=== PATIENT | female | born 1975 | race Caucasian/White ===

== ENCOUNTER 2017-01-22 17:45 | Emergency (ER) | payer OTHER ==
[~2017-01-22] VITALS: Ht 165.1 cm; Wt 56.8 kg
[2017-01-22 17:50] VITALS: BP 99/61; PULSE 127; RESP 18; O2SAT 99
[2017-01-22 18:23] LABS: BASOPHILS % (AUTO) 0.2 % (0-3); EOSINOPHILS % (AUTO) 0.1 % (0-5); MONOCYTES % (AUTO) 8.6 % (4-12); Mean Corpuscular Hemoglobin 26.7 pg (27.0-35.0); Mean Corpuscular Volume 95.3 fL (81-100); NEUTROPHILS % (AUTO) 82.6 % (40-74); Platelet Count 130 bil/L (150-400)
--- NOTE | 2017-01-22 18:33 | ED.REPORT ---
HPI-General Illness Date of Service Jan 22, 2017 ED Provider: Pancho Pham DO A 41 year old female with a history of alcohol abuse and pancreatitis is referred to the ED by Urgent Care due to jaundice. The pt's family noticed the jaundice yesterday. This has been accompanied by abdominal distention and black stools for two weeks. She denies fever, vomiting, diarrhea, or hematemesis. The pt has a history of drinking daily but states that "it has been a while" since she did this. She states that she now drinks less frequently, but pt's states that she still drinks every day and undergoes withdrawal seizures. The pt was diagnosed with pancreatitis related to her alcohol use three years ago. She denies a history of hemolytic anemia, transfusion, or hepatitis. Nursing Notes Stated Complaint: KIDNEY FUNCTION,SENT BY Chief Complaint: General Complaint Nursing Notes Reviewed: Yes Allergies: Coded Allergies: No Known Allergies (Verified , 01/22/17) General Time Seen by MD: 18:32 Chief Complaint Other (Jaundice) Hx Obtained From: Patient, Other family..., EMS Arrived By: Walk-in Sudden in Onset?: No Onset Occurred: 1 day ago Symptom Duration: Since onset Recent Healthcare: No recent hospitalization, Recent doctor visit Similar Sx Previous: No Past Medical History Past Medical History pancreatitis alcohol abuse and withdrawal Past Surgical History none reported Smoking History Unknown if Ever Smoker Social History history of alcohol abuse, now states drinking less Other Social History: Good social support, Ambulatory Status Independent Review of Systems black stool abdominal distention jaundice Full Review of Systems Constitutional: Denies: Fever Respiratory: Denies: Non-productive cough, Shortness of breath Cardiovascular: Denies: Chest pain GI: Denies: Hematemesis, Nausea, Vomiting Musculoskeletal: Denies: Back pain Skin: Denies Rash Complete sys rev & neg: except as marked. Physical Exam Vital Signs Vital Signs Date Time Temp Pulse Resp B/P Pulse Ox O2 Delivery O2 Flow Rate FiO2 01/22/17 22:19 37.3 127 25 126/91 97 Room Air 01/22/17 20:15 37.5 29 96/65 Room Air 01/22/17 17:50 36.8 127 18 99/61 99 Room Air Initial VS: Reviewed General/Constitutional: Awake, Alert Distress / Hydration: Positive: Distress moderate hypotensive Head / Eyes: Atraumatic, Normocephalic, PERRL, EOMI ENT: Atraumatic, Airway patent, Mucous membranes moist Neck: Atraumatic, Supple, Full range of motion Respiratory / Chest: Atraumatic, Breath sounds NL, Breath sounds = bilat, No respiratory distress Cardiovascular: Regular rhythm, Heart sounds NL Heart Rate / Rhythm: Positive: Tachycardia Abdomen: Atraumatic, Soft abdomen protuberant with obvious ascites Back: Atraumatic, Full range of motion Upper Extremities Upper Extremity / MS: Atraumatic, Full range of motion Lower Extremity / Pelvis / MS: Atraumatic, Full range of motion Skin: Atraumatic, No rash, Warm, Dry jaundiced stigmata from liver disease across chest and stomach Neurologic: Oriented X3, Speech NL, No motor deficits, No sensory deficits Psychiatric: Affect NL, Mood NL Interpretation & Diagnostics Lab Results Interpretation Result Diagram: 01/22/17 1806 01/22/17 1806 Test 01/22/17 18:06 01/22/17 18:45 White Blood Count 12.2th/mm3 (3.8-10.1) Red Blood Count 1.72mil/mm3 (3.90-5.20) Hemoglobin 4.6g/dL (12.0-15.6) Hematocrit 16.4% (35.0-46.0) Mean Corpuscular Volume 95.3fL (81-100) Mean Corpuscular Hemoglobin 26.7pg (27.0-35.0) Mean Corpuscular Hemoglobin Concent 28.0% (32.0-37.0) Red Cell Distribution Width 24.0% (12.3-15.4) Platelet Count 130bil/L (150-400) Neutrophils (%) (Auto) 82.6% (40-74) Lymphocytes (%) (Auto) 8.3% (14-46) Monocytes (%) (Auto) 8.6% (4-12) Eosinophils (%) (Auto) 0.1% (0-5) Basophils (%) (Auto) 0.2% (0-3) Prothrombin Time 20.2sec (8.1-12.5) Prothromb Time International Ratio 1.86ratio Sodium Level 127mEq/L (134-144) Potassium Level 3.7mEq/L (3.5-5.2) Chloride Level 85mEq/L (97-108) Carbon Dioxide Level 19mmol/L (18-29) Blood Urea Nitrogen 12mg/dL (6-24) Creatinine 0.39mg/dL (0.57-1.00) Estimat Glomerular Filtration Rate 258mL/min (>59) Glucose Level 152mg/dL (60-99) Calcium Level 8.0mg/dL (8.5-10.1) Magnesium Level 1.0mg/dL (1.6-2.6) Total Bilirubin 8.0mg/dL (0.0-1.2) Aspartate Amino Transf (AST/SGOT) 66U/L (0-50) Alanine Aminotransferase (ALT/SGPT) 13U/L (0-32) Alkaline Phosphatase 518U/L (25-150) Total Protein 6.7g/dL (6.4-8.4) Albumin 3.1g/dL (3.4-5.0) Lipase 7U/L (13-60) Alcohols 184mg/dL (0-10) Hold Purple Top Tube Received (Received) Hold Blue Top Tube Received (Received) Ammonia 61ug/dL (18-53) Hold Red Top Tube Received (Received) Hold [place] Top Tube Received (Received) Hold Pan Top Tube Received (Received) Pulse Oximetry Interpretation Pulse Oximetry Interpretation: 99% on room air Pulse Oximetry: Pulse Ox normal ECG Interpretation ECG Interpretation: sinus tachycardia with a rate of 122 Time: 18:24 Interpreted by: ED physician X-Ray Chest Interpretation Chest Xray Interpretation: IMPRESSION: No acute disease Dictated by: Jaime Dobbins M.D. on 01/22/2017 at 20:10 Approved by: Jaiem Dobbins M.D. on 01/22/2017 at 20:10 Interpretation / Wet Read by: Interpret - Radiologist Re-Eval/Medical Decision Med Decision/Clinical Course 41-year-old female presents jaundiced, hypotensive, tachycardic and profoundly anemic. She is an alcoholic. She drinks every day. She drank today. She became jaundiced roughly a week to 10 days ago. She tells me that she has had at least 10 days of dark brown to black stools. She has developed ascites and the same time. She was seen at the urgent care and they tyler labs and had her come to the emergency department. She presents now with global weakness and fatigue. On exam she was tachycardic and initially hypotensive. She has generalized pallor and jaundice. She has stigmata of chronic liver disease. She has spider hemangiomas across her face anterior chest wall and abdomen. She has soft ascites. She has a systolic ejection murmur. Lungs are essentially clear. She does smell of alcoholic beverages. Laboratory work. She has profound anemia. She has a moderate to severe coagulopathy. She meets the discriminatory zone for acute alcoholic hepatitis. She has moderate hypomagnesemia. ER course: He is placed in a resuscitation room. 2 large-bore IVs were obtained. Continuous cardiopulmonary monitoring. She was typed and crossmatched for 4 units. She was transfused packed red blood cells and fresh frozen plasma. She received octreotide and Protonix. This of course is for possible variceal bleeding verse alcoholic gastritis/GI bleeding. We do not have an ICU bed available. She needs intensive care. She will need a gastroenterology involvement for endoscopy most likely. Case was discussed with the lead janitor Dr. Nash at [facility]. She graciously accepted Mrs. Killian for transfer. Source of Hx: Old records Time of Eval: 18:32 Patient Status: Condition improved Re-Evaluation/Progress Note: Pt informed of the need for admission during the initial interview. The pt understands and agrees with the plan. All questions are addressed at this time. Time of Eval: 19:09 Patient Status: Condition improved Re-Evaluation/Progress Note: Pt rechecked, who is stable. Consent for transfusion is obtained, and possibility of transfer is discussed. The pt understands and agrees with the plan. All questions are addressed at this time. Consultation #1: Referral / Consult Name: Jayant Gagnon MD Consulted With: Hospitalist Call Returned at: 19:12 Metal Smelter: Agrees with eval, Agrees with plan Note: Spoke with Dr. Gagnon, hospitalist, regarding pt's case. Dr. Gagnon recommends transfer due to lack of transfer beds. Consultation #2: Call Returned at: 19:50 Metal Smelter: Accepts admit Note: Spoke with Dr. Nash, [facility], regarding pt's case. Dr. Nash agrees with the evaluation and agrees to accept pt's transfer. Counseled Regarding: Diagnosis, Lab results, Need for admission Discharge & Departure Primary Impression: Anemia Anemia type: other cause Other causes of anemia: acute posthemorrhagic Qualified Code: D62 - Acute posthemorrhagic anemia Additional Impressions: GI bleed requiring more than 4 units of blood in 24 hours, ICU, or surgery Coagulopathy Alcoholic hepatitis Ascites presence: with ascites Qualified Code: K70.11 - Alcoholic hepatitis with ascites Ascites due to alcoholic hepatitis Tachycardia Hypotension Hypotension type: unspecified hypotension type Qualified Code: I95.9 - Hypotension, unspecified Disposition: Transfer, Acute Care Facility Discharge Condition All VS Reviewed: Yes Condition: Stable Referrals: [facility] Crit Care Except Billable Proc Time Spent: 165-194 minutes Services Performed: Patient management by me, Time spent at bedside, Reviewing test results, Reviewing imaging, Discussing patient care, Documentation in record, Time with fam/surrogate Scribe Attestation Portions of this note were transcribed by Karen Lopez. I, Dr. Pham personally performed the history, physical exam and medical decision-making; I reviewed and confirmed the accuracy of the information in the transcribed note. Signed by: Madeline Giraldo, 01/22/2017 and 2329. copies to: [facility] Pancho Pham DO Jan 22, 2017 18:33 KAREN LOPEZ Jan 22, 2017 18:45
[2017-01-22] MEDS ORDERED: Octreotide Inj 500 MCG in 0.9% Sodium Chloride 99 ML IV SCH (18:45)
[2017-01-22] MEDS ORDERED: Pantoprazole Inj 80 MG in 0.9% Sodium Chloride 80 ML IV SCH (18:45)
[2017-01-22] MEDS ORDERED: Pantoprazole Inj 80 MG in 0.9% Sodium Chloride 100 ML IV ONE (18:45)
[2017-01-22 18:53] LABS: INR 1.86 ratio
[2017-01-22] MEDS ORDERED: 0.9% Sodium Chloride 250 ML IV SCH (19:35)
--- NOTE | 2017-01-22 20:11 | DRSVH ---
PROCEDURE: X-RAY CHEST ONE VIEW, PORTABLE ([id number]) INDICATIONS: cough TECHNIQUE: One view of the chest was acquired. COMPARISON: Merged With [facility], , CHEST 1VW (PORTABLE), 05/24/2009, 19:23. FINDINGS: Surgical changes and devices: None. Lungs and pleura: No pleural effusions or pneumothorax. Lungs are clear. Incidentally noted bilate ral nipple shadows Mediastinum: Mediastinal contours appear normal. Heart size is normal. Bones and chest wall: No suspicious bony lesions. Overlying soft tissues appear unremarkable. IMPRESSION: No acute disease Dictated by: Jaime Dobbins M.D. on 01/22/2017 at 20:10 Approved by: Jaime Dobbins M.D. on 01/22/2017 at 20:10
[2017-01-22 20:15] VITALS: BP 96/65; RESP 29
[2017-01-22 22:19] VITALS: BP 126/91; PULSE 127; RESP 25; O2SAT 97
== END 2017-01-22 20:50 | disposition short-term general hospital (02) ==
LOC: SED 17:45
DX: K92.2 Gastrointestinal hemorrhage, unspecified (principal); D62 Acute posthemorrhagic anemia; K70.11 Alcoholic hepatitis with ascites; F10.239 Alcohol dependence with withdrawal, unspecified; I95.9 Hypotension, unspecified; R00.0 Tachycardia, unspecified; Z79.01 Long term (current) use of anticoagulants
CPT/HCPCS: 36415; 36430; 71010; 80053; 82140; 83690; 83735; 85025; 85610; 86922; 86927; 93005; 96361; 96374; 99291; 99292; G0480; P9017; P9021

== ENCOUNTER → 2017-05-01 | Day surgery (SDC) | payer OTHER ==
[~2017-05-01] VITALS: Ht 165.1 cm; Wt 46.7 kg
[~2017-05-01] MED LIST: FURO40TA4 PO; INSU100I13 SUBQ; INSU100I18 SUBQ; LACT10SO PO; Lactated Ringer's 1,000 ML IV ONE; NYST1000 PO; OMEP40CA36 PO; Propofol 10,000 mCg/mL 20 mL Inj ONE; SPIR100T3 PO; fentaNYL-PF 50 mCg/mL 2 mL Inj ONE
[2017-05-01 15:07] VITALS: BP 111/82; PULSE 94; RESP 16; O2SAT 98
--- NOTE | 2017-05-01 16:08 | PCM.HPANE ---
Patient Data Date of Service: May 01, 2017 Surgeon Admitting Provider: Attending Provider:Jeff Helms MD Primary Care Physician:Rolan Maldonado MD Other Provider:Valerie Josue Anesthesia Reason for Visit Gastric Ulcer Ht/WT & BMI Height (Feet): 5 Height (Inches): 5 Weight (Kilograms): 46.7 Body Mass Index 17.00 Allergies Coded Allergies: No Known Allergies (Verified , 05/01/17) Past Anesthesia History Anesthesia History: Denies:: Abnormal Airway, Anesthesia Reactions, Difficult Intubation, Fam Anesthesia Reaction, Fam Malignant Hypertherm, Malignant Hyperthermia Diabetes History Hx Diabetes?: Yes Type of Diabetes: Type II Glycemic Control: Insulin Dependent Current Bedside Blood Glucose: 103 MRSA MRSA: No Medications Reported Medications Insulin Glargine (Lantus U100 Solostar Insulin Pen)100 Unit/1 Ml Insuln.pen1 Unit SUBQ HS #1 PENINJ Ref 0 04/30/17 Lactulose 10 Gm/15 Ml Ivkganyw33 Gm PO TID 04/30/17 Insulin Lispro (HumaLOG U100 Insulin Pen)100 Unit/1 Ml Insuln.pen1 Unit SUBQ before meals #1 PENINJ Ref 0 Blood Sugar Lispro Correction <151 0 units 151-175 1 unit 176-200 2 units 201-225 3 units 226-250 4 units 251-275 5 units 276-300 6 units 301-325 7 units 326-350 8 units 351-375 9 units 376-400 10 units >400 12 units Check blood sugars before meals and at bedtime. Use correction factor only before meals. 04/30/17 Furosemide 40 Mg Dnqekk14 Mg PO DAILY 04/30/17 Spironolactone 100 Mg Nqxahk088 Mg PO DAILY #30 TABLET Ref 0 04/30/17 Discontinued Reported Medications Nystatin 100,000 Unit/1 Ml Oral.susp5 Ml PO QID 04/30/17 Omeprazole 40 Mg Capsule.dr40 Mg PO DAILY Ref 0 04/30/17 History History of ENT Problems?: Yes HEENT History: Positive for:: Dysphagia Denies:: Abnormal Airway Difficult Intubation Denture Type: None Teeth Condition: Within Normal Limits Hx of Heart Problems?: No Cardiovascular History: Denies:: AICD Pacemaker Hx of Respiratory Problem?: No Respiratory History: Denies:: Asthma Hx Neurologic Problems?: Yes Neurological History: Positive for:: Peripheral Neuropathy Denies:: CVA Hx of GI Problems?: Yes Hx of Problems?: No Female Hx: Denies:: Currently Hx Musculoskeletal Problems?: Yes Other History/Comment knee/elbow pain Hx of Psycho/Social Problems?: No Hx Surgeries?: Yes (Ovary tumor, wisdom teeth) Hx Any Other Health Problems?: Yes Hx Diabetes: YesBedside Blood Glucose: 103 Hx Alcohol Use: No (Quit January 20 ) Smoking Status: Unknown if Ever Smoker Stop/Bang Treated for Sleep Apnea?: No Do You Have a CPAP Machine?: No S-Snoring: Do You Snore Loudly: No T-Tired: feel tired, fatigued: Yes O-Obsered: Observed not breath: No P-Blood Pressure: treated: No B- Body Mass Index > 35 kg/m2: No A- Age over 50: No N- Neck Large Circumference: No G- Gender Male: No TIFFANY Total Score: 1 TIFFANY Risk Assessment: Low Risk, <3 Yes Risk Assessment Category Category 1A: Patient has history of documented sleep apnea, and HAS NOT received any narcotic, sedative or anesthesia administration during this stay. Category 1B: Patient has history of documented sleep apnea, and HAS received any narcotic , sedative or anesthesia administration during this stay Category 2: Patient has SUSPECTED Obstructive Sleep Apnea, and HAS received any narcotic , sedative or anesthesia administration during this stay. Category 3: Patient has SUSPECTED Obstructive Sleep Apnea and HAS NOT received narcotic, sedative or anesthesia administration during this stay. Category 4: Outpatient in Procedural Areas with known sleep apnea or who screen positive for High Risk via the STOP/BANG questionnaire. Exam Exam Vital Signs Vital Signs Date Time Temp Pulse Resp B/P Pulse Ox O2 Delivery O2 Flow Rate FiO2 05/01/17 15:07 94 16 111/82 98 Room Air General Appearance: Alert, Oriented X3, Cooperative, No Acute Distress HEENT/AIRWAY: MP 1 Lungs: Clear to Auscultation, Normal Air Movement Heart: Exam Unremarkable, Regular Rate/Rhythm, No Murmurs/Rubs/Gallops Meds/Labs/Diagnostics Bedside Blood Glucose: 103 Plan Impression Patient chart reviewed, patient interviewed and anesthestic plan with risks, benefits, and alternatives discussed, and informed consent obtained. NPO per Anesth. Guidelines: Yes ASA Physical Status: ASA3 Severe Disease Anesthetic Plan: MAC Bene/Risks/Altern/Consents: Yes HP Complete Prior to Induction: Yes Steve, Dimitri J MD May 01, 2017 16:08
--- NOTE | 2017-05-01 16:30 | PCM.ANEP1 ---
Post Anesthesia PACU Phase 1 Assessment Date of Service: May 01, 2017 Vital Signs 96/63 101 20 96% RA Anesthetic Administered: MAC Level of Alertness: Awake, talking OLIVEIRA's with Equal Strength: Yes Pain: No Nausea or Vomiting: No CV Function & Hydration Stable: Yes Airway Device: Oxygen Delivery: Room Air Lungs: Clear to Auscultation, Normal Air Movement PACU Phase 2 Assessment Complications: No Follow up Care: No Patient Instructions Provided: Yes Dimitri Wilson MD May 01, 2017 16:30
[2017-05-01 16:31] VITALS: BP 96/63; PULSE 95; RESP 17; O2SAT 95
[2017-05-01 16:39] VITALS: BP 107/71; PULSE 91; RESP 17; O2SAT 94
--- NOTE | 2017-05-01 19:04 | ENDO ---
[address] [address] ENDOSCOPY PROCEDURE PATIENT: MELVINA DANIEL : 1975 MR#: [id number] ADMIT: 05/01/2017 JOB ID: [id number] DATE: 05/01/2017 PROCEDURE: Esophagogastroduodenoscopy (EGD). INDICATION: Patient with a history of gastric ulcer and a history of cirrhosis from alcohol, and so therefore variceal screening is also being performed. ANESTHESIA: Patient's ASA classification, Mallampati score, and medications as per Dr. Dimitri Wilson's anesthesia report. INSTRUMENT USED: GIF H 180 J. PROCEDURE DETAILS: After informed consent was obtained the patient was brought into the GI suite, where she was placed on oxygen via nasal cannula and monitored with continuous pulse oximeter, telemetry, and blood pressure monitoring. A time-out was performed, then she was placed in the left lateral decubitus position and medications were administered for sedation. A bite block was placed. The standard EGD scope was inserted through the bite block and advanced under direct visualization to the second portion of the duodenum without difficulty. FINDINGS: 1. Normal appearing duodenal bulb, first and second portion. Multiple random biopsies were obtained. 2. Normal appearing pylorus. 3. In the antrum and body of the stomach the mucosa had a mosaic appearance suggestive of portal gastropathy. 4. Multiple biopsies were obtained secondary to the patient's history of gastric ulcer. 5. Retroflexed views in the gastric body revealed a normal-appearing cardia and fundus. 6. The GE junction was at approximately 38 cm and the Z-line appeared regular. 7. Normal appearing esophagus. IMPRESSION: Portal gastropathy. Otherwise normal exam to second portion of duodenum. RECOMMENDATIONS: 1. Await biopsy results. 2. Follow up in GI Clinic in 2-4 weeks. COMPLICATIONS: None. ESTIMATED BLOOD LOSS: Less than 5 mL.
--- NOTE | 2017-05-07 11:22 | PATH ---
SURGICAL PATHOLOGY Attending Physician:Isrrael Contreras CASE STATUS: Signed Out PATIENT NAME: MELVINA DANIEL PID: [id number] : 1975 DATE COLLECTED:05/01/2017 00:00 SPECIMEN: 1: Duodenum, Biopsy 2: Gastric, Biopsy CLINICAL HISTORY: 1. DUODENAL BX 2. GASTRIC RANDOM BX PLEASE TEST FOR H.PYLORI FINAL DIAGNOSIS: 1. Duodenal Biopsy: Fragments of normal appearing duodenal mucosa. Normal delicate mucosal villi present. Negative for significant inflammation, dysplasia and malignancy. 2. Gastric Random Biopsies: Diffuse mild to moderate chronic gastritis involving antral and fundic mucosa. Immunohistochemistry for Helicobacter pending to be reported by addendum. Negative for intestinal metaplasia. Negative for dysplasia and malignancy. ICD10: K29.70 GROSS DESCRIPTION: The specimen is received in two formalin filled containers labeled with the patient's name. 1). The specimen is sublabeled "duodenal" and consists of 4 portions of tissue which aggregate to 0.3 x 0.3 x 0.2 CM. The specimen is entirely submitted in cassette 1A. 2). The specimen is sublabeled "gastric" and consists of 2 portions of tissue which aggregate to 0.5 x 0.3 x 0.2 CM. The specimen is entirely submitted in cassette 2A. 05/02/2017 [facility] ICD-9 CODES: CPT CODES: 1: 54284 2: 97921, 38836 PROCEDURE/ADDENDA: Addendum SPI Addendum Diagnosis 2. Gastric Random Biopsy: Negative for Helicobacter pylori by immunohistochemistry. Addendum Comment {Not Entered} Electronically Signed Out Hardeep Purdy MD Electronically Signed Out Hardeep Purdy MD [facility], [place] [address] Technical component performed at [facility], [facility] [address], [address]
== END | disposition home or self-care (01) ==
LOC: END 01:05
PROVIDERS: ATTEND Internal Medicine Gastroenterology
DX: K29.50 Unspecified chronic gastritis without bleeding (principal); K76.6 Portal hypertension; K31.89 Other diseases of stomach and duodenum; K25.9 Gastric ulcer, unspecified as acute or chronic, without hemorrhage or perforation; E11.9 Type 2 diabetes mellitus without complications; K70.31 Alcoholic cirrhosis of liver with ascites; D64.9 Anemia, unspecified; K86.0 Alcohol-induced chronic pancreatitis; K72.90 Hepatic failure, unspecified without coma; F10.21 Alcohol dependence, in remission; Z79.4 Long term (current) use of insulin; Z99.3 Dependence on wheelchair
CPT/HCPCS: 43239; J3010; J7120